=== PATIENT | male | born 1975 | race African-American/Black ===

== ENCOUNTER 2016-10-06 13:07 | Emergency (ER) | payer OTHER ==
--- NOTE | 2016-10-06 15:30 | ED CLINICAL REPORT ---
Clinical Report - Physicians/Mid Levels [facility] [address] [place] [address] 10/06/2016 13:07 Patient: ROMINA WILCOX Time Seen: 1327; upon arrival, initial patient contact, initial documentation, patient care assumed. Arrived- By private vehicle. Historian- patient. HISTORY OF PRESENT ILLNESS Chief Complaint: LOWER EXTREMITY PAIN. Not worsened by anything. Relieved by prescription medication. Severity is described as being moderate. The quality is noted to be "pain" and similar to prior episodes. It is described as radiating to the left knee (pain shooting up ankle to knee area). This started about 2 1/2 weeks ago and is still present but is improving. Symptoms located in the area of the left ankle. The patient has not had redness. No swelling, bladder dysfunction, bowel dysfunction, sensory loss or motor loss. No difficulty walking. ( no new injury, from 09/19 visit, swelling has gone down, using crutches, has not walked on it, and did not get splint wet or damage it). Patient denies an injury. Similar symptoms previously: None. Recent medical care: The patient was seen recently at this facility in the emergency department. ( txed here on 09/19, L Lateral malleolus fx, splint applied, referrals given to Rodri and Greg, rx hydrocodone and motrin, pt did not f/u, states he lost his health insurance, ran out of meds). REVIEW OF SYSTEMS No chest pain or difficulty breathing. All systems otherwise negative, except as recorded above. PAST HISTORY See nurses notes. ( PROBLEMS: Suture Removal. Healing Wound. Laceration. Tetanus Status. Last Tetanus. --16:54 Laurita Sr R.N. ADDITIONAL SURGERIES: no known surgeries.). SOCIAL HISTORY Heavy tobacco smoker. Regular alcohol use; consumes beer, liquor and wine. History of heavy drug use: marijuana. No recent travel. Is a local resident. FAMILY HISTORY Negative. ADDITIONAL NOTES The nursing notes have been reviewed with agreement regarding the chief complaint, HPI, ROS, PMH and patient medications and allergies. PHYSICAL EXAM Vital Signs: 10/06/2016 13:30 BP: 139/69. HR: 85. RR: 20. O2 saturation: 99%. Temp: 98.6 F. Have been reviewed as normal and appear to be correct. Appearance: Alert. Oriented X3. No acute distress. Eyes: Pupils equal, round and reactive to light. Eyes normal inspection. Respiratory: No respiratory distress. Skin: Skin not intact. Skin cool and moist. Abnormal skin color. Abnormal skin turgor. Extremities: Left ankle: mild tenderness and swelling localized to the lateral malleolus. Limited ROM secondary to pain (diminished plantar flexion, dorsiflexion, inversion and eversion). Neurovascular intact distally. (posterior splint intact, removed). No ligamentous laxity present. No joint effusion. No erythema, laceration, abrasion, ecchymosis or puncture wound. No foreign body or deformity. Lower extremities do not exhibit normal ROM. No lower extremity edema. (gait not tested due to pt not supposed to be bearing weight). Extremities not otherwise negative. Gait: Abnormal gait. Neuro: Disoriented. Motor deficit noted. Sensory deficit noted. PROGRESS AND PROCEDURES Splint Application: Posterior short leg fiberglass splint applied to left ankle. Splint applied by tech. Follow-up recommended within 3 days. 1605 went to assess splint, new pt in the room. Course of Care: had discussion with pt re importance of f/u, placement of regular cast. Patient counseled in person regarding the patient's stable condition and diagnosis. 13:47. Differential Diagnosis: Other possible considerations: ankle fx, noncompliance, substance abuse. Above considerations are based on history and physical exam. Differential diagnosis was discussed with patient. Disposition: Discharged home in good and improved condition. Condition: good and stable. CLINICAL IMPRESSION Closed non-displaced left lateral malleolus fracture. No angulated ankle fracture present. INSTRUCTIONS Use crutches until released. Wear fiberglass splint until released. Warnings: Further evaluation is necessary. It is very important to follow up with a physician. GENERAL WARNINGS: Return or contact your physician immediately if your condition worsens or changes unexpectedly, if not improving as expected, or if other problems arise. Specifically return if problem worsens. Prescription Medications: [place] 5 mg / 325 mg tablets: take 1 to 2 orally every 6 hours as needed for pain. Dispense fifteen (15). No refills. Substitution is permissible. Motrin 800 mg tablets: take 1 tablet orally every 8 hours as needed for pain. Dispense thirty (30). No refills. Substitution is permissible. Understanding of the discharge instructions verbalized by patient. Follow-up with: Olman Eaton DPM, Podiatry, , [facility], [address] [address], [facility], [id number] Follow up Sunday even if well. Call for an appointment. Summary of care provided to patient. Follow-up with: Raymon Huang M.D., Orthopedic Surgeon, , [facility], [address], [address] Follow up Sunday even if well. Call for an appointment. Summary of care provided to patient. (Electronically signed by Sendy Nevarez A.R.N.P. 10/06/2016 16:19)
--- NOTE | 2016-10-06 15:30 | ED CLINICAL REPORT ---
Clinical Report - Physicians/Mid Levels [facility] [address] [place] [address] 10/06/2016 13:07 Patient: ROMINA WILCOX Time Seen: 1327; upon arrival, initial patient contact, initial documentation, patient care assumed. Arrived- By private vehicle. Historian- patient. HISTORY OF PRESENT ILLNESS Chief Complaint: LOWER EXTREMITY PAIN. Not worsened by anything. Relieved by prescription medication. Severity is described as being moderate. The quality is noted to be "pain" and similar to prior episodes. It is described as radiating to the left knee (pain shooting up ankle to knee area). This started about 2 1/2 weeks ago and is still present but is improving. Symptoms located in the area of the left ankle. The patient has not had redness. No swelling, bladder dysfunction, bowel dysfunction, sensory loss or motor loss. No difficulty walking. ( no new injury, from 09/19 visit, swelling has gone down, using crutches, has not walked on it, and did not get splint wet or damage it). Patient denies an injury. Similar symptoms previously: None. Recent medical care: The patient was seen recently at this facility in the emergency department. ( txed here on 09/19, L Lateral malleolus fx, splint applied, referrals given to Rodri and Greg, rx hydrocodone and motrin, pt did not f/u, states he lost his health insurance, ran out of meds). REVIEW OF SYSTEMS No chest pain or difficulty breathing. All systems otherwise negative, except as recorded above. PAST HISTORY See nurses notes. ( PROBLEMS: Suture Removal. Healing Wound. Laceration. Tetanus Status. Last Tetanus. --16:54 Laurita Sr R.N. ADDITIONAL SURGERIES: no known surgeries.). SOCIAL HISTORY Heavy tobacco smoker. Regular alcohol use; consumes beer, liquor and wine. History of heavy drug use: marijuana. No recent travel. Is a local resident. FAMILY HISTORY Negative. ADDITIONAL NOTES The nursing notes have been reviewed with agreement regarding the chief complaint, HPI, ROS, PMH and patient medications and allergies. PHYSICAL EXAM Vital Signs: 10/06/2016 13:30 BP: 139/69. HR: 85. RR: 20. O2 saturation: 99%. Temp: 98.6 F. Have been reviewed as normal and appear to be correct. Appearance: Alert. Oriented X3. No acute distress. Eyes: Pupils equal, round and reactive to light. Eyes normal inspection. Respiratory: No respiratory distress. Skin: Skin not intact. Skin cool and moist. Abnormal skin color. Abnormal skin turgor. Extremities: Left ankle: mild tenderness and swelling localized to the lateral malleolus. Limited ROM secondary to pain (diminished plantar flexion, dorsiflexion, inversion and eversion). Neurovascular intact distally. (posterior splint intact, removed). No ligamentous laxity present. No joint effusion. No erythema, laceration, abrasion, ecchymosis or puncture wound. No foreign body or deformity. Lower extremities do not exhibit normal ROM. No lower extremity edema. (gait not tested due to pt not supposed to be bearing weight). Extremities not otherwise negative. Gait: Abnormal gait. Neuro: Disoriented. Motor deficit noted. Sensory deficit noted. PROGRESS AND PROCEDURES Splint Application: Posterior short leg fiberglass splint applied to left ankle. Splint applied by tech. Follow-up recommended within 3 days. 1605 went to assess splint, new pt in the room. Course of Care: had discussion with pt re importance of f/u, placement of regular cast. Patient counseled in person regarding the patient's stable condition and diagnosis. 13:47. Differential Diagnosis: Other possible considerations: ankle fx, noncompliance, substance abuse. Above considerations are based on history and physical exam. Differential diagnosis was discussed with patient. Disposition: Discharged home in good and improved condition. Condition: good and stable. CLINICAL IMPRESSION Closed non-displaced left lateral malleolus fracture. No angulated ankle fracture present. INSTRUCTIONS Use crutches until released. Wear fiberglass splint until released. Warnings: Further evaluation is necessary. It is very important to follow up with a physician. GENERAL WARNINGS: Return or contact your physician immediately if your condition worsens or changes unexpectedly, if not improving as expected, or if other problems arise. Specifically return if problem worsens. Prescription Medications: [place] 5 mg / 325 mg tablets: take 1 to 2 orally every 6 hours as needed for pain. Dispense fifteen (15). No refills. Substitution is permissible. Motrin 800 mg tablets: take 1 tablet orally every 8 hours as needed for pain. Dispense thirty (30). No refills. Substitution is permissible. Understanding of the discharge instructions verbalized by patient. Follow-up with: Olman Eaton DPM, Podiatry, , [facility], [address] [address], [facility], [address] Follow up Sunday even if well. Call for an appointment. Summary of care provided to patient. Follow-up with: Raymon Huang M.D., Orthopedic Surgeon, , [facility], [address], [address] Follow up Sunday even if well. Call for an appointment. Summary of care provided to patient. (Electronically signed by Sendy Nevarez A.R.N.P. 10/06/2016 16:19)
--- NOTE | 2016-10-06 15:30 | ED ORDER SUMMARY ---
..... Patient: ROMINA WILCOX OrderSheet [facility] VisitID: [id number] [address] [place] [address] 41y, M Registration Date/Time: 10/06/2016 ORDER SHEET Weight: 79.3 kg (stated) Allergies: No Known Drug Allergy GENERAL ORDERS: Splint (LE) (Left) (Short Leg Posterior) (orthoglass) (13:45 10/06/2016 Daniel A.R.N.P.) (15:25 Latoya Uribe) MEDICATION ORDERS: IV FLUIDS: ORDER SHEET NOTES: [Electronically signed by Sendy Nevarez.R.N.PRichard (16:19 10/06/2016)] [Electronically signed by Nathaly Obrien R.N. (16:59 10/06/2016)] [Electronically locked/signed by Nathaly Obrien R.N. (16:59 10/06/2016)]
--- NOTE | 2016-10-06 15:30 | ED NURSING NOTES ---
Clinical Report - Nurses [facility] [address] [place] [address] 10/06/2016 13:07 Patient: ROMINA WILCOX TRIAGE Triage time 1330. Acuity: LEVEL 4. --13:39 Nathaly Obrien R.N. 13:30 10/06/16. BP: 139/69. HR: 85. RR: 20. O2 saturation: 99%. Temp: 98.6 F. --13:39 Nathaly Obrien R.N. Triage time 1330. Acuity: LEVEL 4. Chief Complaint: INJURY TO LEFT ANKLE. --13:44 Nathaly Obrien R.N. Weight: 79.3 kg stated. Height/Length: 71 inches Per Patient. BMI: 24.4. --13:43 Nathaly Obrien R.N. Medications Aleve 1 BID last dose 11am. --13:41 Nathaly Obrien R.N. Allergies No Known Drug Allergy. --13:41 Nathaly Obrien R.N. History Arrived by private vehicle. Historian: patient. Unaccompanied. --13:39 Nathaly Obrien R.N. Arrived by private vehicle. Historian: patient. Accompanied by friend. This occurred (09/19). Mechanism of injury: sustained a twisting injury and fell. ( pt was seen here 09/19 with displaced fib fx lt ankle, has been unable to get into ortho due to insurance issues. needs cast and pain meds). He has had trouble walking. SOCIAL HX: Light tobacco smoker (cigarette)- less than 1/2 a pack per day. Alcohol use; consumes four beers a week. History of drug use: marijuana. --13:44 Nathaly Obrien R.N. PROBLEMS: Fibula Fracture. --13:42 Nathaly Obrien R.N. ADDITIONAL SURGERIES: None. --13:42 Nathaly Obrien R.N. Interventions ID band on patient. To treatment room. --13:39 Nathaly Obrien R.N. ID band on patient. To treatment room. --13:44 Nathaly Obrien R.N. PHYSICAL ASSESSMENT Patient gowned. GENERAL / NEURO / PSYCH: Oriented X 4. Alert. Appears in pain. EXTREMITIES: Left ankle: tenderness and swelling. SKIN: Skin is warm and dry. --13:45 Nathaly Obrien R.N. NURSING PROGRESS NOTES 13:30. Extremity elevated. Reassurance given. Patient identifiers checked. Call light placed in reach. Side rails up. Bed placed in lowest position. Patient ready for evaluation- chart flagged. --13:44 Nathaly Obrien R.N. 15:10. Posterior fiberglass lower extremity splint applied to left ankle by nurse. Distal pulses intact, sensation intact and motor within normal limits (placed by KARINA Patterson assisted by Olivia Vance [facility]). --16:58 Nathaly Obrien R.N. DISPOSITION / DISCHARGE 15:20. Condition at departure: stable. No learning barriers present. Discharge instructions provided and reviewed with the patient. Reviewed medication(s) (motrin, vicodin). Reviewed referral to an orthopedic surgeon and a electrical machine builder. Patient verbalized understanding. Written instructions provided in Surinamese. The patient was discharged home and accompanied by dog raiser. He left the Emergency Department on crutches and via private vehicle. Electronic Equipment Repairmen driving. --16:56 Nathaly Obrien R.N. 15:20 10/06/16. BP: 128/70. HR: 72. RR: 18. O2 saturation: 99% on room air. Temp: deferred. Pain level now: 01/08. --16:56 Nathaly Obrien R.N. Locked/Released at 10/06/2016 16:59 by Nathaly Obrien R.N.
--- NOTE | 2016-10-06 15:30 | ED NURSING NOTES ---
Clinical Report - Nurses [facility] [address] [place] [address] 10/06/2016 13:07 Patient: ROMINA WILCOX TRIAGE Triage time 1330. Acuity: LEVEL 4. --13:39 Nathaly Obrien R.N. 13:30 10/06/16. BP: 139/69. HR: 85. RR: 20. O2 saturation: 99%. Temp: 98.6 F. --13:39 Nathaly Obrien R.N. Triage time 1330. Acuity: LEVEL 4. Chief Complaint: INJURY TO LEFT ANKLE. --13:44 Nathaly Obrien R.N. Weight: 79.3 kg stated. Height/Length: 71 inches Per Patient. BMI: 24.4. --13:43 Nathaly Obrien R.N. Medications Aleve 1 BID last dose 11am. --13:41 Nathaly Obrien R.N. Allergies No Known Drug Allergy. --13:41 Nathaly Obrien R.N. History Arrived by private vehicle. Historian: patient. Unaccompanied. --13:39 Nathaly Obrien R.N. Arrived by private vehicle. Historian: patient. Accompanied by friend. This occurred (09/19). Mechanism of injury: sustained a twisting injury and fell. ( pt was seen here 09/19 with displaced fib fx lt ankle, has been unable to get into ortho due to insurance issues. needs cast and pain meds). He has had trouble walking. SOCIAL HX: Light tobacco smoker (cigarette)- less than 1/2 a pack per day. Alcohol use; consumes four beers a week. History of drug use: marijuana. --13:44 Nathaly Obrien R.N. PROBLEMS: Fibula Fracture. --13:42 Nathaly Obrien R.N. ADDITIONAL SURGERIES: None. --13:42 Natahly Obrien R.N. Interventions ID band on patient. To treatment room. --13:39 Nathaly Obrien R.N. ID band on patient. To treatment room. --13:44 Nathaly Obrien R.N. PHYSICAL ASSESSMENT Patient gowned. GENERAL / NEURO / PSYCH: Oriented X 4. Alert. Appears in pain. EXTREMITIES: Left ankle: tenderness and swelling. SKIN: Skin is warm and dry. --13:45 Nathaly Obrien R.N. NURSING PROGRESS NOTES 13:30. Extremity elevated. Reassurance given. Patient identifiers checked. Call light placed in reach. Side rails up. Bed placed in lowest position. Patient ready for evaluation- chart flagged. --13:44 Nathaly Obrien R.N. 15:10. Posterior fiberglass lower extremity splint applied to left ankle by nurse. Distal pulses intact, sensation intact and motor within normal limits (placed by KARINA Patterson assisted by Olivia Vance [facility]). --16:58 Nathaly Obrien R.N. DISPOSITION / DISCHARGE 15:20. Condition at departure: stable. No learning barriers present. Discharge instructions provided and reviewed with the patient. Reviewed medication(s) (motrin, vicodin). Reviewed referral to an orthopedic surgeon and a processing archivist. Patient verbalized understanding. Written instructions provided in [place]ani. The patient was discharged home and accompanied by child nutrition assistant. He left the Emergency Department on crutches and via private vehicle. Mechanical Artist driving. --16:56 Nathaly Obrien R.N. 15:20 10/06/16. BP: 128/70. HR: 72. RR: 18. O2 saturation: 99% on room air. Temp: deferred. Pain level now: 01/08. --16:56 Nathaly Obrien R.N. Locked/Released at 10/06/2016 16:59 by Nathaly Obrien R.N.
--- NOTE | 2016-10-06 15:30 | ED ORDER SUMMARY ---
..... Patient: ROMINA WILCOX OrderSheet [facility] VisitID: [id number] [address] [place] [address] 41y, M Registration Date/Time: 10/06/2016 ORDER SHEET Weight: 79.3 kg (stated) Allergies: No Known Drug Allergy GENERAL ORDERS: Splint (LE) (Left) (Short Leg Posterior) (orthoglass) (13:45 10/06/2016 Daniel A.R.N.P.) (15:25 Latoya Uribe) MEDICATION ORDERS: IV FLUIDS: ORDER SHEET NOTES: [Electronically signed by Sendy Nevarez.R.N.PRichard (16:19 10/06/2016)] [Electronically signed by Nathaly Obrien R.N. (16:59 10/06/2016)] [Electronically locked/signed by Nathaly Obrien R.N. (16:59 10/06/2016)]
--- NOTE | 2016-10-06 17:00 | ED DISCHARGE INSTRUCTIONS ---
Patient: ROMINA WILCOX General Instructions [facility] VisitID: [id number] [address] [place] [address] 41y, M Registration Date/Time: 10/06/2016 Closed non-displaced left lateral malleolus fracture. No angulated ankle fracture present. INSTRUCTIONS Use crutches until released. Wear fiberglass splint until released. Warnings: Further evaluation is necessary. It is very important to follow up with a physician. GENERAL WARNINGS: Return or contact your physician immediately if your condition worsens or changes unexpectedly, if not improving as expected, or if other problems arise. Specifically return if problem worsens. Prescription Medications: Bath 5 mg / 325 mg tablets: take 1 to 2 orally every 6 hours as needed for pain. Dispense fifteen (15). No refills. Substitution is permissible. Motrin 800 mg tablets: take 1 tablet orally every 8 hours as needed for pain. Dispense thirty (30). No refills. Substitution is permissible. Understanding of the discharge instructions verbalized by patient. Follow-up with: Olman Eaton DPM, Podiatry, , [facility], [address] [address], [facility], [id number] Follow up Sunday even if well. Call for an appointment. Summary of care provided to patient. Follow-up with: Raymon Huang M.D., Orthopedic Surgeon, , [facility], [address] [place], [id number] Follow up Sunday even if well. Call for an appointment. Summary of care provided to patient. ADDITIONAL INFORMATION Fracture:Ankle You have a break (fracture) of the ankle. This causes local pain, swelling and sometimes bruising. A fracture is treated with a splint or cast or special boot. It will take about 4-6 weeks for the fracture to heal. Surgery may be needed to fix severe injuries. Home Care: You will be given a splint, cast or boot to prevent movement at the ankle joint. Unless you were told otherwise, use crutches or a walker and do not bear weight on the injured leg until cleared by your doctor to do so. (Crutches and walkers can be rented at many pharmacies and surgical/orthopedic supply stores). Do not put weight on a splint; it will break. Keep your leg elevated to reduce pain and swelling. When sleeping, place a pillow under the injured leg. When sitting, support the injured leg so it is level with your waist. This is very important during the first 48 hours. Apply an ice pack (ice cubes in a plastic bag, wrapped in a towel) over the injured area for 20 minutes every 1-2 hours the first day. You can place the ice pack directly over the splint/cast. Continue with ice packs 3-4 times a day for the next two days, then as needed for the relief of pain and swelling. Keep the cast/splint/boot completely dry at all times. Bathe with your cast/splint/boot out of the water, protected with a large plastic bag, rubber-banded at the top end. If a boot or fiberglass cast/splint gets wet, you can dry it with a hair-dryer. You may use acetaminophen (Tylenol) or ibuprofen (Motrin, Advil) to control pain, unless another pain medicine was prescribed. [ NOTE : If you have chronic liver or kidney disease or ever had a stomach ulcer or GI bleeding, talk with your doctor before using these medicines.] Follow Up with your doctor in one week, or as advised by our staff, to be sure the bone is healing properly. If you were given a splint, it may be changed to a cast at your follow-up visit. [NOTE: A radiologist will review any X-rays that were taken. We will notify you of any new findings that may affect your care.] Get Prompt Medical Attention If Any Of The Following Occur: The plaster cast or splint becomes wet or soft The fiberglass cast or splint remains wet for more than 24 hours Increased tightness or pain under the cast or splint Toes become swollen, cold, blue, numb or tingly Crutch Walking Crutch Adjustment Make sure the crutches you use are adjusted to fit you. When you stand, there should be room to fit 2-3 fingers between the top of the crutch and your armpit. Your elbow should be slightly bent when holding the hand back gray cloth washer. Crutch Walking: Place the crutches forward 12" in front of and 6" to the side of your feet. Lean your weight forward as you push down on the handgrips. Your weight should be on your hands and yourstrong leg, not your armpits . Let your body swing through, landing on the strong leg. Advance the crutches forward again. The crutch and the injured leg should move together. Going Up Steps: ("Up with the good") With both crutches on the same step as your feet, push down on the handgrips. Balancing with very light pressure on the weak leg, let your hands support your weight as you raise your strong leg onto the next higher step. Transfer all your weight to your strong leg (still bent) as you move the crutches up to the next step alongside the strong leg. With your weight evenly balanced on the two crutches and your strong leg, straighten your strong knee as you raise the weak leg up to the next step. Going Down Steps: ("Down with the bad") With both crutches on the same step as your feet, push down on the handgrips. With your weight evenly balanced on the two crutches and your strong leg, bend your strong knee as you lower the weak leg down to the next step. Let your strong leg support you (still bent) as you move the crutches down alongside the weak leg. Transfer your weight to your hands, balancing with very light pressure on the weak leg as you lower your strong leg alongside your weak leg. Splint Care, Fiberglass The following will help you care for your splint: It will take up totwo hours for your fiber glass splint to fully harden; therefore, do notapply any pressure on it during that time or else it may break. To prevent swelling under the splint, for thefirst 48 hours: If the splint is on yourarm, keep it in a sling or raised to shoulder level when sitting or standing; rest it on your chest or on a pillow at your side when lying down. If the splint is on yourfoot, keep it propped up above the level of your waist when sitting or lying. Avoid crutch walking as much as possible during this time. Keep the splint/cast dry at all times. Bathe with your splint/cast well out of the water, protected with a large plastic bag, rubber-banded at the top end. If a fiberglass cast or splint gets wet, you can dry it with a hair-dryer. Follow-up care Follow up with your doctor or this facility as advised. When to seek medical care Get prompt medical attention if any of the following occur: Bad odor from the splint or wound-fluid stains the splint The splint cracks or remains wet over 24 hours Increasing tightness or pressure under the splint Fingers or toes become swollen, cold, blue, numb or tingly Increased pain under the splint Hydrocodone Bitartrate, Acetaminophen Oral tablet What is this medicine? ACETAMINOPHEN; HYDROCODONE (a set a AMA michela fen; mathew droe KOE done) is a pain reliever. It is used to treat mild to moderate pain. How should I use this medicine? Take this medicine by mouth. Swallow it with a full glass of water. Follow the directions on the prescription label. If the medicine upsets your stomach, take the medicine with food or milk. Do not take more than you are told to take. Talk to your trench digger regarding the use of this medicine in children. This medicine is not approved for use in children. What side effects may I notice from receiving this medicine? Side effects that you should report to your doctor or health youth career specialist as soon as possible: allergic reactions like skin rash, itching or hives, swelling of the face, lips, or tongue breathing problems confusion feeling faint or lightheaded, falls stomach pain yellowing of the eyes or skin Side effects that usually do not require medical attention (report to your doctor or health youth career specialist if they continue or are bothersome): nausea, vomiting stomach upset What may interact with this medicine? alcohol antihistamines isoniazid medicines for depression, anxiety, or psychotic disturbances medicines for sleep muscle relaxants naltrexone narcotic medicines (opiates) for pain phenobarbital ritonavir tramadol What if I miss a dose? If you miss a dose, take it as soon as you can. If it is almost time for your next dose, take only that dose. Do not take double or extra doses. Where should I keep my medicine? Keep out of the reach of children. This medicine can be abused. Keep your medicine in a safe place to protect it from theft. Do not share this medicine with anyone. Selling or giving away this medicine is dangerous and against the law. Store at room temperature between 15 and 30 degrees C (59 and 86 degrees F). Protect from light. Keep container tightly closed. Throw away any unused medicine after the expiration date. Discard unused medicine and used packaging carefully. Pets and children can be harmed if they find used or lost packages. What should I tell my health care provider before I take this medicine? They need to know if you have any of these conditions: brain tumor Crohn's disease, inflammatory bowel disease, or ulcerative colitis drink more than 3 alcohol-containing drinks per day drug abuse or addiction head injury heart or circulation problems kidney disease or problems going to the bathroom liver disease lung disease, asthma, or breathing problems an unusual or allergic reaction to acetaminophen, hydrocodone, other opioid analgesics, other medicines, foods, dyes, or preservatives or trying to get breast-feeding What should I watch for while using this medicine? Tell your doctor or health youth career specialist if your pain does not go away, if it gets worse, or if you have new or a different type of pain. You may develop tolerance to the medicine. Tolerance means that you will need a higher dose of the medicine for pain relief. Tolerance is normal and is expected if you take the medicine for a long time. Do not suddenly stop taking your medicine because you may develop a severe reaction. Your body becomes used to the medicine. This does NOT mean you are addicted. Addiction is a behavior related to getting and using a drug for a non-medical reason. If you have pain, you have a medical reason to take pain medicine. Your doctor will tell you how much medicine to take. If your doctor wants you to stop the medicine, the dose will be slowly lowered over time to avoid any side effects. You may get drowsy or dizzy when you first start taking the medicine or change doses. Do not drive, use machinery, or do anything that may be dangerous until you know how the medicine affects you. Stand or sit up slowly. There are different types of narcotic medicines (opiates) for pain. If you take more than one type at the same time, you may have more side effects. Give your health care provider a list of all medicines you use. Your doctor will tell you how much medicine to take. Do not take more medicine than directed. Call emergency for help if you have problems breathing. The medicine will cause constipation. Try to have a bowel movement at least every 2 to 3 days. If you do not have a bowel movement for 3 days, call your doctor or health youth career specialist. Too much acetaminophen can be very dangerous. Do not take Tylenol (acetaminophen) or medicines that contain acetaminophen with this medicine. Many non-prescription medicines contain acetaminophen. Always read the labels carefully. Ibuprofen Oral tablet What is this medicine? IBUPROFEN (eye BYOO proe fen) is a non-steroidal anti-inflammatory drug (NSAID). It is used for dental pain, fever, headaches or migraines, osteoarthritis, rheumatoid arthritis, or painful monthly periods. It can also relieve minor aches and pains caused by a cold, flu, or sore throat. How should I use this medicine? Take this medicine by mouth with a glass of water. Follow the directions on the prescription label. Take this medicine with food if your stomach gets upset. Try to not lie down for at least 10 minutes after you take the medicine. Take your medicine at regular intervals. Do not take your medicine more often than directed. A special MedGuide will be given to you by the pharmacist with each prescription and refill. Be sure to read this information carefully each time. Talk to your trench digger regarding the use of this medicine in children. Special care may be needed. What side effects may I notice from receiving this medicine? Side effects that you should report to your doctor or health youth career specialist as soon as possible: allergic reactions like skin rash, itching or hives, swelling of the face, lips, or tongue black or bloody stools, blood in the urine or in vomit breathing problems changes in vision chest pain general ill feeling or flu-like symptoms nausea or vomiting redness, blistering, peeling or loosening of the skin, including inside the mouth slurred speech or weakness on one side of the body stomach pain unexplained weight gain or swelling unusually weak or tired yellowing of eyes or skin Side effects that usually do not require medical attention (report to your doctor or health youth career specialist if they continue or are bothersome): constipation or diarrhea dizziness gas or heartburn stomach upset What may interact with this medicine? Do not take this medicine with any of the following medications: cidofovir ketorolac methotrexate pemetrexed This medicine may also interact with the following medications: alcohol aspirin diuretics lithium other drugs for inflammation like prednisone warfarin What if I miss a dose? If you miss a dose, take it as soon as you can. If it is almost time for your next dose, take only that dose. Do not take double or extra doses. Where should I keep my medicine? Keep out of the reach of children. Store at room temperature between 15 and 30 degrees C (59 and 86 degrees F). Keep container tightly closed. Throw away any unused medicine after the expiration date. What should I tell my health care provider before I take this medicine? They need to know if you have any of these conditions: asthma cigarette smoker drink more than 3 alcohol containing drinks a day heart disease or circulation problems such as heart failure or leg edema (fluid retention) high blood pressure kidney disease liver disease stomach bleeding or ulcers an unusual or allergic reaction to ibuprofen, aspirin, other NSAIDS, other medicines, foods, dyes, or preservatives or trying to get breast-feeding What should I watch for while using this medicine? Tell your doctor or healthcare professional if your symptoms do not start to get better or if they get worse. This medicine does not prevent heart attack or stroke. In fact, this medicine may increase the chance of a heart attack or stroke. The chance may increase with longer use of this medicine and in people who have heart disease. If you take aspirin to prevent heart attack or stroke, talk with your doctor or health youth career specialist. Do not take other medicines that contain aspirin, ibuprofen, or naproxen with this medicine. Side effects such as stomach upset, nausea, or ulcers may be more likely to occur. Many medicines available without a prescription should not be taken with this medicine. This medicine can cause ulcers and bleeding in the stomach and intestines at any time during treatment. Ulcers and bleeding can happen without warning symptoms and can cause . To reduce your risk, do not smoke cigarettes or drink alcohol while you are taking this medicine. You may get drowsy or dizzy. Do not drive, use machinery, or do anything that needs mental alertness until you know how this medicine affects you. Do not stand or sit up quickly, especially if you are an older patient. This reduces the risk of dizzy or fainting spells. This medicine can cause you to bleed more easily. Try to avoid damage to your teeth and gums when you brush or floss your teeth. You have been given the following additional information: Fracture, Ankle (General) Crutch Walking Splint Care, Fiberglass Hydrocodone Bitartrate, Acetaminophen Oral tablet Ibuprofen Oral tablet (Electronically signed by Sendy Nevarez A.R.N.P. 10/06/2016 16:19)
--- NOTE | 2016-10-06 17:00 | ED MED RECONCILIATION SUMMARY ---
Patient: ROMINA WILCOX Medication Reconciliation Report [facility] VisitID: [id number] [address] [place] [address] 41y, M Registration Date/Time: 10/06/2016 Weight: 79.3 kg Height/Length: 71 in. BMI: 24.4 ALLERGIES: No Known Drug Allergy The patient's Home Medications are listed below: THE FOLLOWING MEDICATIONS NEED TO BE RECONCILED: Aleve 1 BID last dose 11am The source(s) of the original Home Medication information: Not obtained. The following Medications were given to the patient in the Emergency Department: None. The following Medications were prescribed to the patient: [place] 5 mg / 325 mg tablets: take 1 to 2 orally every 6 hours as needed for pain. Dispense fifteen (15). No refills. Substitution is permissible. -- Sendy Nevarez, A.R.N.P. Motrin 800 mg tablets: take 1 tablet orally every 8 hours as needed for pain. Dispense thirty (30). No refills. Substitution is permissible. -- Sendy Nevarez, A.R.N.P.
--- NOTE | 2016-10-06 17:00 | ED DISCHARGE INSTRUCTIONS ---
Patient: ROMINA WILCOX General Instructions [facility] VisitID: [id number] [address] [place] [address] 41y, M Registration Date/Time: 10/06/2016 Closed non-displaced left lateral malleolus fracture. No angulated ankle fracture present. INSTRUCTIONS Use crutches until released. Wear fiberglass splint until released. Warnings: Further evaluation is necessary. It is very important to follow up with a physician. GENERAL WARNINGS: Return or contact your physician immediately if your condition worsens or changes unexpectedly, if not improving as expected, or if other problems arise. Specifically return if problem worsens. Prescription Medications: [place] 5 mg / 325 mg tablets: take 1 to 2 orally every 6 hours as needed for pain. Dispense fifteen (15). No refills. Substitution is permissible. Motrin 800 mg tablets: take 1 tablet orally every 8 hours as needed for pain. Dispense thirty (30). No refills. Substitution is permissible. Understanding of the discharge instructions verbalized by patient. Follow-up with: Olman Eaton DPM, Podiatry, , [facility], [address] [facility] [address], [facility], [id number] Follow up Sunday even if well. Call for an appointment. Summary of care provided to patient. Follow-up with: Raymon Huang M.D., Orthopedic Surgeon, , [facility], [address] [place], [id number] Follow up Sunday even if well. Call for an appointment. Summary of care provided to patient. ADDITIONAL INFORMATION Fracture:Ankle You have a break (fracture) of the ankle. This causes local pain, swelling and sometimes bruising. A fracture is treated with a splint or cast or special boot. It will take about 4-6 weeks for the fracture to heal. Surgery may be needed to fix severe injuries. Home Care: You will be given a splint, cast or boot to prevent movement at the ankle joint. Unless you were told otherwise, use crutches or a walker and do not bear weight on the injured leg until cleared by your doctor to do so. (Crutches and walkers can be rented at many pharmacies and surgical/orthopedic supply stores). Do not put weight on a splint; it will break. Keep your leg elevated to reduce pain and swelling. When sleeping, place a pillow under the injured leg. When sitting, support the injured leg so it is level with your waist. This is very important during the first 48 hours. Apply an ice pack (ice cubes in a plastic bag, wrapped in a towel) over the injured area for 20 minutes every 1-2 hours the first day. You can place the ice pack directly over the splint/cast. Continue with ice packs 3-4 times a day for the next two days, then as needed for the relief of pain and swelling. Keep the cast/splint/boot completely dry at all times. Bathe with your cast/splint/boot out of the water, protected with a large plastic bag, rubber-banded at the top end. If a boot or fiberglass cast/splint gets wet, you can dry it with a hair-dryer. You may use acetaminophen (Tylenol) or ibuprofen (Motrin, Advil) to control pain, unless another pain medicine was prescribed. [ NOTE : If you have chronic liver or kidney disease or ever had a stomach ulcer or GI bleeding, talk with your doctor before using these medicines.] Follow Up with your doctor in one week, or as advised by our staff, to be sure the bone is healing properly. If you were given a splint, it may be changed to a cast at your follow-up visit. [NOTE: A radiologist will review any X-rays that were taken. We will notify you of any new findings that may affect your care.] Get Prompt Medical Attention If Any Of The Following Occur: The plaster cast or splint becomes wet or soft The fiberglass cast or splint remains wet for more than 24 hours Increased tightness or pain under the cast or splint Toes become swollen, cold, blue, numb or tingly Crutch Walking Crutch Adjustment Make sure the crutches you use are adjusted to fit you. When you stand, there should be room to fit 2-3 fingers between the top of the crutch and your armpit. Your elbow should be slightly bent when holding the hand phone screener. Crutch Walking: Place the crutches forward 12" in front of and 6" to the side of your feet. Lean your weight forward as you push down on the handgrips. Your weight should be on your hands and yourstrong leg, not your armpits . Let your body swing through, landing on the strong leg. Advance the crutches forward again. The crutch and the injured leg should move together. Going Up Steps: ("Up with the good") With both crutches on the same step as your feet, push down on the handgrips. Balancing with very light pressure on the weak leg, let your hands support your weight as you raise your strong leg onto the next higher step. Transfer all your weight to your strong leg (still bent) as you move the crutches up to the next step alongside the strong leg. With your weight evenly balanced on the two crutches and your strong leg, straighten your strong knee as you raise the weak leg up to the next step. Going Down Steps: ("Down with the bad") With both crutches on the same step as your feet, push down on the handgrips. With your weight evenly balanced on the two crutches and your strong leg, bend your strong knee as you lower the weak leg down to the next step. Let your strong leg support you (still bent) as you move the crutches down alongside the weak leg. Transfer your weight to your hands, balancing with very light pressure on the weak leg as you lower your strong leg alongside your weak leg. Splint Care, Fiberglass The following will help you care for your splint: It will take up totwo hours for your fiber glass splint to fully harden; therefore, do notapply any pressure on it during that time or else it may break. To prevent swelling under the splint, for thefirst 48 hours: If the splint is on yourarm, keep it in a sling or raised to shoulder level when sitting or standing; rest it on your chest or on a pillow at your side when lying down. If the splint is on yourfoot, keep it propped up above the level of your waist when sitting or lying. Avoid crutch walking as much as possible during this time. Keep the splint/cast dry at all times. Bathe with your splint/cast well out of the water, protected with a large plastic bag, rubber-banded at the top end. If a fiberglass cast or splint gets wet, you can dry it with a hair-dryer. Follow-up care Follow up with your doctor or this facility as advised. When to seek medical care Get prompt medical attention if any of the following occur: Bad odor from the splint or wound-fluid stains the splint The splint cracks or remains wet over 24 hours Increasing tightness or pressure under the splint Fingers or toes become swollen, cold, blue, numb or tingly Increased pain under the splint Hydrocodone Bitartrate, Acetaminophen Oral tablet What is this medicine? ACETAMINOPHEN; HYDROCODONE (a set a AMA michela fen; mathew droe KOE done) is a pain reliever. It is used to treat mild to moderate pain. How should I use this medicine? Take this medicine by mouth. Swallow it with a full glass of water. Follow the directions on the prescription label. If the medicine upsets your stomach, take the medicine with food or milk. Do not take more than you are told to take. Talk to your local combination truck driver regarding the use of this medicine in children. This medicine is not approved for use in children. What side effects may I notice from receiving this medicine? Side effects that you should report to your doctor or health career technical supervisor as soon as possible: allergic reactions like skin rash, itching or hives, swelling of the face, lips, or tongue breathing problems confusion feeling faint or lightheaded, falls stomach pain yellowing of the eyes or skin Side effects that usually do not require medical attention (report to your doctor or health career technical supervisor if they continue or are bothersome): nausea, vomiting stomach upset What may interact with this medicine? alcohol antihistamines isoniazid medicines for depression, anxiety, or psychotic disturbances medicines for sleep muscle relaxants naltrexone narcotic medicines (opiates) for pain phenobarbital ritonavir tramadol What if I miss a dose? If you miss a dose, take it as soon as you can. If it is almost time for your next dose, take only that dose. Do not take double or extra doses. Where should I keep my medicine? Keep out of the reach of children. This medicine can be abused. Keep your medicine in a safe place to protect it from theft. Do not share this medicine with anyone. Selling or giving away this medicine is dangerous and against the law. Store at room temperature between 15 and 30 degrees C (59 and 86 degrees F). Protect from light. Keep container tightly closed. Throw away any unused medicine after the expiration date. Discard unused medicine and used packaging carefully. Pets and children can be harmed if they find used or lost packages. What should I tell my health care provider before I take this medicine? They need to know if you have any of these conditions: brain tumor Crohn's disease, inflammatory bowel disease, or ulcerative colitis drink more than 3 alcohol-containing drinks per day drug abuse or addiction head injury heart or circulation problems kidney disease or problems going to the bathroom liver disease lung disease, asthma, or breathing problems an unusual or allergic reaction to acetaminophen, hydrocodone, other opioid analgesics, other medicines, foods, dyes, or preservatives or trying to get breast-feeding What should I watch for while using this medicine? Tell your doctor or health career technical supervisor if your pain does not go away, if it gets worse, or if you have new or a different type of pain. You may develop tolerance to the medicine. Tolerance means that you will need a higher dose of the medicine for pain relief. Tolerance is normal and is expected if you take the medicine for a long time. Do not suddenly stop taking your medicine because you may develop a severe reaction. Your body becomes used to the medicine. This does NOT mean you are addicted. Addiction is a behavior related to getting and using a drug for a non-medical reason. If you have pain, you have a medical reason to take pain medicine. Your doctor will tell you how much medicine to take. If your doctor wants you to stop the medicine, the dose will be slowly lowered over time to avoid any side effects. You may get drowsy or dizzy when you first start taking the medicine or change doses. Do not drive, use machinery, or do anything that may be dangerous until you know how the medicine affects you. Stand or sit up slowly. There are different types of narcotic medicines (opiates) for pain. If you take more than one type at the same time, you may have more side effects. Give your health care provider a list of all medicines you use. Your doctor will tell you how much medicine to take. Do not take more medicine than directed. Call emergency for help if you have problems breathing. The medicine will cause constipation. Try to have a bowel movement at least every 2 to 3 days. If you do not have a bowel movement for 3 days, call your doctor or health career technical supervisor. Too much acetaminophen can be very dangerous. Do not take Tylenol (acetaminophen) or medicines that contain acetaminophen with this medicine. Many non-prescription medicines contain acetaminophen. Always read the labels carefully. Ibuprofen Oral tablet What is this medicine? IBUPROFEN (eye BYOO proe fen) is a non-steroidal anti-inflammatory drug (NSAID). It is used for dental pain, fever, headaches or migraines, osteoarthritis, rheumatoid arthritis, or painful monthly periods. It can also relieve minor aches and pains caused by a cold, flu, or sore throat. How should I use this medicine? Take this medicine by mouth with a glass of water. Follow the directions on the prescription label. Take this medicine with food if your stomach gets upset. Try to not lie down for at least 10 minutes after you take the medicine. Take your medicine at regular intervals. Do not take your medicine more often than directed. A special MedGuide will be given to you by the pharmacist with each prescription and refill. Be sure to read this information carefully each time. Talk to your local combination truck driver regarding the use of this medicine in children. Special care may be needed. What side effects may I notice from receiving this medicine? Side effects that you should report to your doctor or health career technical supervisor as soon as possible: allergic reactions like skin rash, itching or hives, swelling of the face, lips, or tongue black or bloody stools, blood in the urine or in vomit breathing problems changes in vision chest pain general ill feeling or flu-like symptoms nausea or vomiting redness, blistering, peeling or loosening of the skin, including inside the mouth slurred speech or weakness on one side of the body stomach pain unexplained weight gain or swelling unusually weak or tired yellowing of eyes or skin Side effects that usually do not require medical attention (report to your doctor or health career technical supervisor if they continue or are bothersome): constipation or diarrhea dizziness gas or heartburn stomach upset What may interact with this medicine? Do not take this medicine with any of the following medications: cidofovir ketorolac methotrexate pemetrexed This medicine may also interact with the following medications: alcohol aspirin diuretics lithium other drugs for inflammation like prednisone warfarin What if I miss a dose? If you miss a dose, take it as soon as you can. If it is almost time for your next dose, take only that dose. Do not take double or extra doses. Where should I keep my medicine? Keep out of the reach of children. Store at room temperature between 15 and 30 degrees C (59 and 86 degrees F). Keep container tightly closed. Throw away any unused medicine after the expiration date. What should I tell my health care provider before I take this medicine? They need to know if you have any of these conditions: asthma cigarette smoker drink more than 3 alcohol containing drinks a day heart disease or circulation problems such as heart failure or leg edema (fluid retention) high blood pressure kidney disease liver disease stomach bleeding or ulcers an unusual or allergic reaction to ibuprofen, aspirin, other NSAIDS, other medicines, foods, dyes, or preservatives or trying to get breast-feeding What should I watch for while using this medicine? Tell your doctor or healthcare professional if your symptoms do not start to get better or if they get worse. This medicine does not prevent heart attack or stroke. In fact, this medicine may increase the chance of a heart attack or stroke. The chance may increase with longer use of this medicine and in people who have heart disease. If you take aspirin to prevent heart attack or stroke, talk with your doctor or health career technical supervisor. Do not take other medicines that contain aspirin, ibuprofen, or naproxen with this medicine. Side effects such as stomach upset, nausea, or ulcers may be more likely to occur. Many medicines available without a prescription should not be taken with this medicine. This medicine can cause ulcers and bleeding in the stomach and intestines at any time during treatment. Ulcers and bleeding can happen without warning symptoms and can cause . To reduce your risk, do not smoke cigarettes or drink alcohol while you are taking this medicine. You may get drowsy or dizzy. Do not drive, use machinery, or do anything that needs mental alertness until you know how this medicine affects you. Do not stand or sit up quickly, especially if you are an older patient. This reduces the risk of dizzy or fainting spells. This medicine can cause you to bleed more easily. Try to avoid damage to your teeth and gums when you brush or floss your teeth. You have been given the following additional information: Fracture, Ankle (General) Crutch Walking Splint Care, Fiberglass Hydrocodone Bitartrate, Acetaminophen Oral tablet Ibuprofen Oral tablet (Electronically signed by Sendy Nevarez A.R.N.P. 10/06/2016 16:19)
--- NOTE | 2016-10-06 17:00 | ED MAR SUMMARY ---
..... Medication Administration Record [facility] [address] [place], [place] [id number] Patient: ROMINA WILCOX Visit ID: [id number] 41y, M Weight: 79.3 kg Height/Length: 71 in BMI: 24.4 ALLERGIES: No Known Drug Allergy
--- NOTE | 2016-10-06 17:00 | ED MAR SUMMARY ---
..... Medication Administration Record [facility] [address] [place], [place] [id number] Patient: ROMINA WILCOX Visit ID: [id number] 41y, M Weight: 79.3 kg Height/Length: 71 in BMI: 24.4 ALLERGIES: No Known Drug Allergy
--- NOTE | 2016-10-06 17:00 | ED MED RECONCILIATION SUMMARY ---
Patient: ROMINA WILCOX Medication Reconciliation Report [facility] VisitID: [id number] [address] [place] [address] 41y, M Registration Date/Time: 10/06/2016 Weight: 79.3 kg Height/Length: 71 in. BMI: 24.4 ALLERGIES: No Known Drug Allergy The patient's Home Medications are listed below: THE FOLLOWING MEDICATIONS NEED TO BE RECONCILED: Aleve 1 BID last dose 11am The source(s) of the original Home Medication information: Not obtained. The following Medications were given to the patient in the Emergency Department: None. The following Medications were prescribed to the patient: [place] 5 mg / 325 mg tablets: take 1 to 2 orally every 6 hours as needed for pain. Dispense fifteen (15). No refills. Substitution is permissible. -- Sendy Nevarez, A.R.N.P. Motrin 800 mg tablets: take 1 tablet orally every 8 hours as needed for pain. Dispense thirty (30). No refills. Substitution is permissible. -- Sendy Nevarez, A.R.N.P.
== END 2016-10-06 15:30 | disposition home or self-care (01) ==
LOC: ED SRH 13:07
DX: S82.65XD Nondisplaced fracture of lateral malleolus of left fibula, subsequent encounter for closed fracture with routine healing (principal); X58.XXXD Exposure to other specified factors, subsequent encounter; F17.210 Nicotine dependence, cigarettes, uncomplicated